=== PATIENT | female | born 1975 | race Hispanic/Latino ===

== ENCOUNTER 2021-11-14 15:03 | Outpatient (CLI) | payer OTHER ==
[2021-11-14 18:16] LABS: Hemoglobin 13.5 g/dL (12.0-15.5); Mean Corpuscular HGB CONC 32.5 g/dL (32.0-36.0); Mean Corpuscular Hemoglobin 29.8 pg (27.0-33.0); Mean Corpuscular Volume 91.8 fl (81.6-98.3); Mean Platelet Volume 12.5 fl (7.4-10.4); Platelet Count 296 10x3/uL (150-450); RBC Distribution Width 13.6 % (11.5-14.5); Red Blood Cell (RBC) Count 4.53 10x6/uL (3.90-5.03); White Blood Cell (WBC) Count 9.7 10x3/uL (3.5-10.5)
[2021-11-14 18:37] LABS: BHCG - Serum Negative (NEGATIVE); Pregs Control Background? CLEAR/WHITE (CLR/WHITE); Pregs Control Bar Appear? YES (CONTROL BAR)
[2021-11-14 23:50] LABS: SARS-CoV-2 PCR by NAA Not Detected (NotDetected)
== END 2021-11-14 15:04 | disposition home or self-care (01) ==
LOC: CSHLAB 15:03
PROVIDERS: ATTEND Obstetrics & Gynecology
DX: Z01.812 Encounter for preprocedural laboratory examination (principal); Z20.822 Contact with and (suspected) exposure to COVID-19; N83.201 Unspecified ovarian cyst, right side
CPT/HCPCS: 84703; 85027; 86850; 86900; 86901; U0003; U0005

== ENCOUNTER 2021-11-19 06:24 | Day surgery (SDC) | payer OTHER ==
[2021-11-10 13:43] VITALS: BMI 28.1
[2021-11-19] MEDS ORDERED: Gabapentin 300 MG CAP ONE (06:31)
[2021-11-19] MEDS ORDERED: CeleCOXIB 100 MG CAP ONE (06:32)
[2021-11-19] MEDS ORDERED: Famotidine/PF 20 mg/2ml Vial ONE (06:32)
[2021-11-19] MEDS ORDERED: Lidocaine 1% MPF 2 ML VIAL ONE (06:32)
[2021-11-19] MEDS ORDERED: PROPOFOL 20 ML ONE (07:00)
[2021-11-19] MEDS ORDERED: Midazolam HCl 2 mg/2 ml Vial ONE (07:00)
[2021-11-19] MEDS ORDERED: Dexamethasone 4 mg/ml Vial ONE (07:01)
[2021-11-19] MEDS ORDERED: Ondansetron PF 4 MG/2 ML Vial ONE (07:01)
[2021-11-19] MEDS ORDERED: Rocuronium Bromide 10 MG/ML (10ML VIAL) ONE (07:01)
[2021-11-19] MEDS ORDERED: Fentanyl 100 MCG/2 ML VIAL ONE (07:01)
[2021-11-19] MEDS ORDERED: Lidocaine 1% PF 5 ML VIAL ONE (07:01)
[2021-11-19] MEDS ORDERED: Glycopyrrolate 0.2 MG/ML 5 ML SYRINGE ONE (07:02)
[2021-11-19] MEDS ORDERED: Lidocaine 4% Topical Sol 50 ML BOT ONE (07:03)
[2021-11-19] MEDS ORDERED: Bupivacaine PF 0.5% 30 ML VIAL ONE (07:20)
[2021-11-19] MEDS ORDERED: EPINEPHrine 1 MG/ML AMP ONE (07:20)
[2021-11-19] MEDS ORDERED: Methylene Blue 50 MG/10 ML AMPUL ONE (07:21)
[2021-11-19] MEDS ORDERED: ceFAZolin 2 GM/Dextrose 50 ML IVPB ONE (07:41)
== END 2021-11-19 10:45 | disposition home or self-care (01) ==
LOC: CSHSDC 06:24
PROVIDERS: ATTEND Obstetrics & Gynecology
PROC: 0UT54ZZ Resection of Right Fallopian Tube, Percutaneous Endoscopic Approach (ICD-10-PCS; principal; 2021-11-19)
PROC: 0UT04ZZ Resection of Right Ovary, Percutaneous Endoscopic Approach (ICD-10-PCS; principal; 2021-11-19)
DX: N83.291 Other ovarian cyst, right side (principal); N83.8 Other noninflammatory disorders of ovary, fallopian tube and broad ligament; I10 Essential (primary) hypertension; E03.9 Hypothyroidism, unspecified; Z79.899 Other long term (current) drug therapy
CPT/HCPCS: 88305; J0171; J0690; J1100; J2250; J2405; J2704; J3010; Q9968; S0020; S0028